=== PATIENT | female | born 1960 | race Caucasian/White ===

== ENCOUNTER 2017-01-08 11:07 | Emergency (ER) | payer MEDICARE ==
[~2017-01-08] VITALS: Ht 160 cm; Wt 65.9 kg
[2017-01-08 11:10] VITALS: BP 133/89; PULSE 89; TEMP 97.7
[2017-01-08] MEDS ORDERED: ULTRAM 50MG TAB50 MG PO (11:42)
[2017-01-08] MEDS ORDERED: NAPRELAN750 MG PO (11:42)
[2017-01-08] MEDS ORDERED: NORCO 325 MG-51 TAB PO (12:29)
== END 2017-01-08 12:40 | disposition home or self-care (01) ==
LOC: COL.ER 11:07
DX: M25.511 Pain in right shoulder (principal)
CPT/HCPCS: J1885; J2360